=== PATIENT | male | born 1945 | race African-American/Black ===

== ENCOUNTER 2020-04-11 00:22 | Emergency (ER) | payer MEDICARE, MEDICAID ==
[~2020-04-11] VITALS: Ht 185.4 cm; Wt 91.0 kg
[2020-04-11 01:10] LABS: CLARITY URINE TURBID (CLEAR); COLOR URINE YELLOW (YELLOW); KETONES URINE NEGATIVE (NEGATIVE); LEUKOCYTE ESTERASE URINE 3+ (NEGATIVE); NITRITE URINE NEGATIVE (NEGATIVE); OCCULT BLOOD URINE 3+ (NEGATIVE); PH URINE 6.5 (4.5-8.0); PROTEIN URINE 1+ (NEGATIVE); SPECIFIC GRAVITY URINE 1.018 (1.005-1.030)
[2020-04-11] MEDS ORDERED: CEPH500C2 MT (03:30)
[2020-04-11 04:50] VITALS: BP 149/84
== END 2020-04-11 04:51 | disposition home or self-care (01) ==
LOC: ER 00:36
DX: R33.9 Retention of urine, unspecified (principal); N40.0 Benign prostatic hyperplasia without lower urinary tract symptoms; I10 Essential (primary) hypertension
CPT/HCPCS: 51702; 81003; 87077; 87186; 93005; 99284

== ENCOUNTER 2020-04-17 11:30 | Emergency (ER) | payer MEDICARE, MEDICAID ==
[~2020-04-17] VITALS: Ht 185.4 cm; Wt 108.0 kg
[~2020-04-17 11:30] MED LIST: CEPH500C2 MT
[2020-04-17 13:33] VITALS: BP 130/65
== END 2020-04-17 13:35 | disposition home or self-care (01) ==
LOC: ER 11:30
DX: T83.018A Breakdown (mechanical) of other urinary catheter, initial encounter (principal); I10 Essential (primary) hypertension; Y84.6 Urinary catheterization as the cause of abnormal reaction of the patient, or of later complication, without mention of misadventure at the time of the procedure; Y92.9 Unspecified place or not applicable
CPT/HCPCS: 51702; 99283; 99284